=== PATIENT | male | born 2000 | race Caucasian/White ===

== ENCOUNTER 2022-09-18 08:20 | Emergency (ER) | payer SELFPAY ==
[2022-09-18 08:30] VITALS: BP 124/73; PULSE 80; RESP 16; TEMP 98.2; BMI 24.7
[2022-09-18] MEDS ORDERED: IBUPROFEN 600 MG TABLET (FP) PO ONE ×2 (09:50→13:07)
== END 2022-09-18 15:44 | disposition home or self-care (01) ==
LOC: JER 08:20 → JERFT 08:20 → JER 15:44
DX: U07.1 COVID-19 (principal); B97.4 Respiratory syncytial virus as the cause of diseases classified elsewhere; H60.501 Unspecified acute noninfective otitis externa, right ear
CPT/HCPCS: 0241U-QW; 70480-TC; 99284-25